=== PATIENT | female | born 1950 | race Caucasian/White ===

== ENCOUNTER 2019-12-15 11:48 | Outpatient (CLI) | payer MEDICARE, SELFPAY ==
[2019-12-15 13:17] LABS: Basophils Percent Auto 0.5 % (0.2-1.2); Eosinophils Absolute Auto 0.3 K/mm3 (0-0.3); Eosinophils Percent Auto 4.1 % (0-4.4); Hematocrit 39.5 % (37.0-47.0); Hemoglobin 12.9 g/dL (12.0-15.0); Immature Granulocyte Absolute 0.01 K/mm3 (0.00-0.031); Immature Granulocyte Percent A 0.2 % (0-0.5); Lymphocytes Absolute Auto 1.97 K/mm3 (0.9-3.2); Lymphocytes Percent Auto 31.4 % (18.3-44.2); Mean Corpuscular HGB Conc 32.7 g/dl (32-36); Mean Corpuscular Hemoglobin 29.8 pg (26-34); Mean Corpuscular Volume 91.2 fl (80-100); Mean Platelet Volume 11.4 fl (7.4-10.4); Monocytes Absolute Auto 0.5 K/mm3 (0.1-0.6); Monocytes Percent Auto 8.6 % (2.6-8.5); Neutrophils Absolute Auto 3.5 K/mm3 (1.3-6.7); Neutrophils Percent Auto 55.2 % (45.5-73.1); Platelet Count Result 245 k/mm3 (150-375); Red Blood Count 4.33 M/mm3 (4.2-5.4); Red Cell Distribution Width 12.5 % (11.5-14.5); White Blood Count 6.3 K/mm3 (4.5-10.0)
[2019-12-15 13:26] LABS: Albumin Level 4.2 g/dL (3.5-5.1)
[2019-12-15 13:33] LABS: Urine Cotinine NEGATIVE
[2019-12-15 13:35] LABS: Blood Urea Nitrogen 14 mg/dL (7-17); Calcium 9.1 mg/dL (8.4-10.2); Carbon Dioxide 32 mmol/L (22-30); Chloride 96 mmol/L (98-107); Estimated Glomerular Filt Rate > 60; Glucose 103 mg/dL (65-105); Potassium 3.7 mmol/L (3.4-5.0); Sodium 139 mmol/L (137-145)
[2019-12-15 13:43] LABS: Hemoglobin A1C 6.4 % (<5.7)
== END 2019-12-15 11:49 | disposition home or self-care (01) ==
PROVIDERS: Anesthesiology; PCP Family Medicine Sports Medicine; Visit Provider Orthopaedic Surgery
DX: Z01.818 Encounter for other preprocedural examination (principal); M17.12 Unilateral primary osteoarthritis, left knee; I10 Essential (primary) hypertension; E78.5 Hyperlipidemia, unspecified; R73.9 Hyperglycemia, unspecified
CPT/HCPCS: 36415; 80048; 80307; 82040; 83036; 85025; 86850; 86900; 86901

== ENCOUNTER 2019-12-28 14:59 | Observation (INO) | payer MEDICARE, SELFPAY ==
[2019-12-15 12:25] VITALS: BMI 36.6
[2019-12-15 13:02] VITALS: BP 161/79; PULSE 71; RESP 18; TEMP 36.7; O2SAT 98
--- NOTE | 2019-12-25 13:05 | P.HP_ITS ---
H&P: HPI History of Present Illness Chief complaint: OA Left Knee Narrative: Julia Major is a 69 year old female who has a chronic ongoing history of left knee pain due to primary osteoarthritis. Patient has pain with ambulation she has start-up pain rest pain and night pain. Patient can stand or walk for long periods has trouble with twisting or turning of the knee has aching pain almost any activity. Despite a course of conservative measures including cortisone therapy and anti-inflammatories or symptoms continue. X- rays at this time show advanced primarily arthritis left knee joint. The patient's discuss further treatment options in detail with Dr. Edgar in the patient would now like to proceed with a left total knee arthroplasty. Drug allergies no known drug allergies the patient does have a lactose intolerance. Social history is negative for tobacco use the patient occasionally drinks alcohol 10 point review of systems otherwise negative Past surgical history includes hysterectomy left knee arthroscopy and tonsillectomy. Meds Home Medications and Allergies Home Medications Medication Instructions Recorded Confirmed Type Lacto.acidophilus-Bif.animalis 1 cap PO DAILY 12/15/19 12/15/19 History [Daily Probiotic] amlodipine 5 mg PO DAILY 12/15/19 12/15/19 History atorvastatin 20 mg PO DAILY 12/15/19 12/15/19 History calcium carbonate [Calcium 600] 600 mg PO DAILY 12/15/19 12/15/19 History cholecalciferol (vitamin D3) 2,000 unit PO DAILY 12/15/19 12/15/19 History furosemide 20 mg PO QMWF 12/15/19 12/15/19 History hydrochlorothiazide 25 mg PO DAILY 12/15/19 12/15/19 History zegpmwcc-ryn-KD-lycopen-lutein 1 tablet PO DAILY 12/15/19 12/15/19 History [Centrum Silver] nebivolol [Bystolic] 20 mg PO DAILY 12/15/19 12/15/19 History pantoprazole 40 mg PO BID 12/15/19 12/15/19 History Allergies Allergy/AdvReac Type Severity Reaction Status Date / Time lactose Allergy Unknown BLOATING,ABD Verified 12/15/19 12:04 CRAMPING RED WINE Allergy Unknown CHEST PAIN Uncoded 12/15/19 12:03 Exam Narrative: Exam Narrative: HEENT exam within normal limits heart regular rate and rhythm lungs clear auscultation abdomen benign bowel sounds positive for quads. Extremities showed the patient's left knee to be painful with manipulation range of motion. She has subpatellar crepitation and pain with extremes of motion. His tenderness on the joint lines of mild effusion and swelling. Hips move well as negative Stinchfield negative EVAN. Neurovascular the patient is intact. Skin is intact. Central nervous system exam within normal limits. X-ray showed advanced primary arthritis left knee joint. Assessment and Plan Additional Plan The patient has advanced primarily with right is left knee joint. Patient's discussed risks benefits limitations and alternatives of surgery in great detail Dr. Edgar she has never proceed with left total knee arthroplasty. Patient is scheduled undergo surgery December 27, [address] [facility] Dr. Edgar.
[2019-12-27] VITALS (10 sets, daily range): BP systolic 118–151; BP diastolic 65–88; PULSE 79–89; RESP 11–18; TEMP 36.2–36.7; O2SAT 93–100; BMI 35.8
--- NOTE | 2019-12-27 07:14 | WPDHPUPDATE1 ---
History and Physical Update Update Date/Time: 12/27/19 07:14 History and Physical has been reviewed, including an updated exam of the patient. There are NO changes in the patient's condition. Risks, benefits, and alternatives have been discussed and questions answered. Patient agrees to proceed with procedure.
[2019-12-27] MEDS: LACTATED RINGERS 1,000 ML 30 ML IV CONT ×2 (08:50→11:32)
--- NOTE | 2019-12-27 09:15 | P.PNAN_ITS ---
Anes - Initial Pre Proc Eval Procedure: Operation Date: 12/27/19 10:00 Proposed Procedures p Left Total Knee Arthroplasty - Damián Edgar MD Date/Time: 12/27/19 09:15 Surgeon: Damián Edgar MD Pre Op Diagnosis: OA Left Knee Patient Data Age: 69 Gender: F Height: 5 ft 4 in Weight: 94.6 kg Last Vital Signs Temp 36.7 C 12/15/19 13:02 Pulse 71 12/15/19 13:02 Resp 18 12/15/19 13:02 BP 161/79 H 12/15/19 13:02 Pulse Ox 98 12/15/19 13:02 Allergies Allergy/AdvReac Type Severity Reaction Status Date / Time lactose Allergy Unknown BLOATING,ABD Verified 12/27/19 09:00 CRAMPING RED WINE Allergy Unknown CHEST PAIN Uncoded 12/27/19 09:00 Home Medications Medication Instructions Recorded Confirmed Type Lacto.acidophilus-Bif.animalis 1 cap PO DAILY 12/15/19 12/27/19 History [Daily Probiotic] amlodipine 5 mg PO DAILY 12/15/19 12/27/19 History atorvastatin 20 mg PO DAILY 12/15/19 12/27/19 History calcium carbonate [Calcium 600] 600 mg PO DAILY 12/15/19 12/27/19 History cholecalciferol (vitamin D3) 2,000 unit PO DAILY 12/15/19 12/27/19 History furosemide 20 mg PO QMWF 12/15/19 12/27/19 History hydrochlorothiazide 25 mg PO DAILY 12/15/19 12/27/19 History volrevsi-cpp-RC-lycopen-lutein 1 tablet PO DAILY 12/15/19 12/27/19 History [Centrum Silver] nebivolol [Bystolic] 20 mg PO DAILY 12/15/19 12/27/19 History pantoprazole 40 mg PO BID 12/15/19 12/27/19 History Patient hx anesthesia problems: none Family hx anesthesia problems: none [facility] Past Medical History Medical History (Updated 12/27/19 @ 09:16 by Merlin Bloom MD) HTN (hypertension) Hyperlipidemia Obesity Anes - Eval Final PreProcedure Day of Procedure 12/27/19 09:15 Patient weight: obese Heart: regular rate and rhythm Lungs: clear to auscultation Airway: Mallampati scale class 1 Neurological: alert and oriented Last oral intake: >/= 8 hours ASA classification: II Emergent: no Anesthetic plan: proceed Anesthesia type and monitoring: general GIVS and standard monitoring Informed Consent: The patient's anesthetic plan and its attendant risks and benefits were discussed with the patient/family/POA. Questions were solicited and answers provided to the satisfaction of the patient/family/POA.
--- NOTE | 2019-12-27 09:39 | WPDANESPNB ---
Anes - Peripheral Nerve Block Date/Time: 12/27/19 09:39 I have discussed with the patient/family/POA the placement of a peripheral nerve block for post-operative pain management, including associated risks, benefits, complications, and side effects. Alternative methods of post-operative analgesia were detailed. Questions were solicited and answers provided to the satisfaction of the patient/family/POA. Time-Out: A pre-procedural Time-Out was completed immediately before starting the procedure and confirmed: Patient Identification, Site, Procedure, Patient Position and the Availability of Requisite Equipment. Clinical Indications: Acute post-operative pain management requested by the operative surgeon. Nerve Block Insertion Note Anes-nerve block: femoral left Patient position: supine Skin prep: chlorhexidine Needle: 22 gauge, stimulating, insulated echogenic needle. Needle length: 50 mm Technique: nerve stimulation lost at (mA) (0.20) Injectate: bupivacaine 0.5% with epi 5 mcg/ml (30cc) and dexamethasone (mg) (8mg) Observations: tolerated well Complications: none Procedure start time:: 924 Procedure end time:: 932
[2019-12-27] MEDS: ceFAZolin 2 GM/D5W 50 ML 2 GM/50 ML BAG IVPB (09:53)
[2019-12-27] MEDS: GENTAMICIN BONE CEMENT REFOBACIN 1 EACH TOPICAL (10:14)
--- NOTE | 2019-12-27 11:05 | PM.PROC ---
Procedure Note - Detailed Date of procedure: 12/27/19 Pre-op diagnosis: OA Left Knee Post-op diagnosis: same Procedure performed: [Left] total knee arthroplasty Description of procedure: The patient was brought to the operating room. General anesthetic was administered. Placed on the operating table and sterilely prepped and draped in usual manner. A longitudinal incision was made. Tourniquet inflated to 300 mmHg for a total of [time] minutes. Dissection carried down to the fascia. Medial parapatellar incision was made and the patella subluxated laterally. Patella cut from [21] to [14] mm and sized for a [34] mm button. The tibia cut perpendicular to the long axis and femur cut in 7 degrees of valgus, a [60] femur trialed. [63] tibia was felt to fit the best. The soft tissue balanced, hemostasis obtained. All [address], [63] tibia, [60] femur, [34] mm patella, and [10] mm poly. Motion was 0-125 degrees with good stablility and flexion and extension. The wound was closed with #2 vicryl, 2-0 Vicryl and faith. Anesthesia: GETA Surgeon: Damián Edgar MD Director Talent Acquisition: Keith Mendenhall Estimated blood loss (mL): 200 Drains: No Packing: No Pathology: none sent Complications: No immediate complications Condition: stable Disposition: PACU Findings: arthritis
--- NOTE | 2019-12-27 12:43 | PC.NURSE ---
This patient, Julia Major, was admitted to 3 [facility] Room 319-01. Patient/family oriented to hospital policies and general routines including ID bracelet, bed and alarms, visiting hours, pain management, procedures, bathroom and other care routines, personal items, smoking policy, room service/diet, and visiting hours. Valuables list has been completed. Information on how to activate the Rapid Response Team has been discussed. Patient/Family are encouraged to report perceived risks to care and to ask questions if they do not understand what they are told or what they should do.
[2019-12-27] MEDS: SODIUM CHLORIDE 0.9% IV 1,000 ML 125 ML IV CONT ×2 (13:09→20:57)
[2019-12-27 13:53] LABS: Estimated CRCL calculation 71 ml/min; Estimated Glomerular Filt Rate > 60
[2019-12-27] MEDS: MORPHINE SULFATE 4 MG/ML INJ IV PUSH (13:59)
[2019-12-27] MEDS: CELECOXIB 200 MG CAPSULE PO (17:36)
[2019-12-27] MEDS: PANTOPRAZOLE 40 MG TABLET PO (17:37)
[2019-12-27] MEDS: FAMOTIDINE 20 MG TABLET PO (20:56)
[2019-12-27] MEDS: RIVAROXABAN 10 MG TABLET PO (20:56)
[2019-12-27] MEDS: DOCUSATE SODIUM 100 MG CAPSULE PO (20:56)
[2019-12-27] MEDS: TRAMADOL HCL 50 MG TABLET PO (20:57)
--- NOTE | ~2019-12-28 | XR_ITS ---
EXAMINATION: XR knee LT 2V DATE: 12/27/2019 11:55 INDICATION: Postoperative evaluation following left total knee arthroplasty. TECHNIQUE: Anteroposterior and lateral views of the left knee were obtained. COMPARISON: None. FINDINGS: Left total knee arthroplasty with patellar resurfacing appears well seated and in near anatomic align ment. No fractures identified. Skin faith and expected postoperative subcutaneous, intramedullary and intra-articular gas. IMPRESSION: 1. Left total knee arthroplasty, negative for postoperative purposes. Reviewed, dictated and finalized at location A. [employer]
[2019-12-28 02:00] VITALS: BP 154/78; PULSE 95; RESP 16; TEMP 36.3; O2SAT 97
[2019-12-28 02:11] VITALS: PULSE 87; RESP 16; O2SAT 98
[2019-12-28 04:20] VITALS: PULSE 87; RESP 16; O2SAT 97
[2019-12-28 06:00] VITALS: BP 139/69; PULSE 86; RESP 16; TEMP 36.8; O2SAT 97
[2019-12-28 06:42] LABS: Basophils Percent Auto 0.1 % (0.2-1.2); Hematocrit 32.1 % (37.0-47.0); Hemoglobin 10.8 g/dL (12.0-15.0); Immature Granulocyte Absolute 0.06 K/mm3 (0.00-0.031); Immature Granulocyte Percent A 0.5 % (0-0.5); Lymphocytes Absolute Auto 0.92 K/mm3 (0.9-3.2); Lymphocytes Percent Auto 7.3 % (18.3-44.2); Mean Corpuscular HGB Conc 33.6 g/dl (32-36); Mean Corpuscular Hemoglobin 30.1 pg (26-34); Mean Corpuscular Volume 89.4 fl (80-100); Mean Platelet Volume 11.3 fl (7.4-10.4); Monocytes Absolute Auto 1.1 K/mm3 (0.1-0.6); Monocytes Percent Auto 8.6 % (2.6-8.5); Neutrophils Absolute Auto 10.5 K/mm3 (1.3-6.7); Neutrophils Percent Auto 83.5 % (45.5-73.1); Platelet Count Result 221 k/mm3 (150-375); Red Blood Count 3.59 M/mm3 (4.2-5.4); Red Cell Distribution Width 12.5 % (11.5-14.5); White Blood Count 12.5 K/mm3 (4.5-10.0)
[2019-12-28 06:46] LABS: Blood Urea Nitrogen 14 mg/dL (7-17); Calcium 8.7 mg/dL (8.4-10.2); Carbon Dioxide 26 mmol/L (22-30); Chloride 101 mmol/L (98-107); Estimated CRCL calculation 96 ml/min; Estimated Glomerular Filt Rate > 60; Glucose 168 mg/dL (65-105); Potassium 3.8 mmol/L (3.4-5.0); Sodium 138 mmol/L (137-145)
[2019-12-28] MEDS: CELECOXIB 200 MG CAPSULE PO (07:54)
[2019-12-28] MEDS: DOCUSATE SODIUM 100 MG CAPSULE PO (07:55)
[2019-12-28] MEDS: FAMOTIDINE 20 MG TABLET PO (07:55)
[2019-12-28] MEDS: ATORVASTATIN 20 MG TABLET PO (07:55)
[2019-12-28] MEDS: AMLODIPINE BESYLATE 5 MG TABLET PO (07:55)
[2019-12-28] MEDS: hydroCHLOROthiazide 25 MG TABLET PO (07:55)
[2019-12-28 07:56] VITALS: PULSE 86
[2019-12-28] MEDS: MULTIVITAMINS /C LUTEIN (CENTRUM SILVER) TABLET *BKC 1 TAB PO (07:56)
[2019-12-28] MEDS: PANTOPRAZOLE 40 MG TABLET PO (07:56)
[2019-12-28] MEDS: NEBIVOLOL HCL 5 MG TABLET 20 MG PO (07:56)
--- NOTE | 2019-12-28 08:46 | P.PNAN_ITS ---
Anes - Prog Note Post-Op Date/Time: 12/28/19 08:46 Cardiovascular status: normal Respiratory status: normal Airway patency: baseline Mental status: baseline Post-Op hydration status: normal Vital Signs: Last Vital Signs Temp 36.8 C 12/28/19 06:00 Pulse 86 12/28/19 07:56 Resp 16 12/28/19 06:00 BP 139/69 12/28/19 06:00 Pulse Ox 97 12/28/19 06:00 I/O: Intake & Output 12/27/19 12/28/19 12/28/19 23:59 07:59 15:59 Intake Total 1490 1600 Output Total 400 900 Balance 1090 700 Laboratory Tests 12/28/19 06:08 12/28/19 06:08 12/27/19 12/28/19 12/28/19 13:29 06:08 06:08 WBC 12.5 H RBC 3.59 L Hgb 10.8 L Hct 32.1 L MCV 89.4 MCH 30.1 MCHC 33.6 RDW 12.5 Plt Count 221 MPV 11.3 H Immature Gran % (Auto) 0.5 Neut % (Auto) 83.5 H Lymph % (Auto) 7.3 L [place] % (Auto) 8.6 H Eos % (Auto) 0.0 Baso % (Auto) 0.1 L Lymph # (Auto) 0.92 [place] # (Auto) 1.1 H Eos # (Auto) 0.0 Baso # (Auto) 0.0 Abs Immat Gran (auto) 0.06 H Absolute Neuts (auto) 10.5 H Absolute Nucleated RBC 0.0 Nucleated RBC % 0.0 Sodium 138 Potassium 3.8 Chloride 101 Carbon Dioxide 26 BUN 14 Creatinine 0.70 0.50 L Estim Creat Clear Calc 71 96 Estimated GFR > 60 > 60 Glucose 168 H Calcium 8.7 Post-procedural complaints: none Patient Feedback: Patient satisfied with anesthetic care.
--- NOTE | 2019-12-28 09:03 | PM.IMCN ---
Assessment and Plan Assessment and plan (1) HTN (hypertension): Code(s): I10 - Essential (primary) hypertension Status: Acute (2) Hyperglycemia: Code(s): R73.9 - Hyperglycemia, unspecified Status: Acute (3) Osteoarthritis, knee: Code(s): M17.10 - Unilateral primary osteoarthritis, unspecified knee Status: Acute (4) Hyperlipidemia: Code(s): E78.5 - Hyperlipidemia, unspecified Status: Acute (5) Acute blood loss anemia: Code(s): D62 - Acute posthemorrhagic anemia Status: Acute Additional Plan Patient had some mild nausea vomiting post procedure but this has resolved. Pain is well controlled. She is up ambulating multiple times to the bathroom ready. She appears overall to have recovered well from the surgery. Blood pressure well controlled. Antihypertensive medications have been resumed. Monitor for hypotension. Mild postoperative anemia noted. White count slightly elevated probably related to stress response. Glucose also elevated to 168 this morning. Patient appears to be borderline diabetes with A1c recently of 6.4. Discussed healthy lifestyle choices. She is eager to start using her stationary bike again. PT and OT. Will continue his follow along with you. Thank you so much for allowing me part of this patient's care. HPI Data of Consult Consult date: 12/28/19 Requesting Physician: Michael Wells MD Primary Care Provider: Damián Edgar MD Consult Narrative Narrative: Julia Major is a 69 year old female with OA here for elective left TKA. Patient has had the pain bilaterally for over 5 years. The left is worse than the right. She has had injections the left knee. This has been of benefit. She has also been doing therapy. She noted that her left knee pain has worsened over the past year. She has been having trouble standing for prolonged periods. she has occasional pain at night. She did have a left knee meniscus repair done many years ago. Options were discussed and patient wished to proceed with surgical replacement. Patient admitted underwent left total knee arthroplasty on 12/27/2019. Post procedure, she did have some nausea and vomiting that has resolved. She is eating normally now. No other significant symptoms. She has been up walking to the bathroom multiple times already. No chest pain or shortness of breath. She states that her blood pressure and cholesterol well controlled prior to admission. Review of Systems Review of Systems: All systems reviewed & are unremarkable except as noted in HPI and below PMFSH Past Medical History Medical History (Updated 12/28/19 @ 09:18 by Ollie Wells MD) Emphysema lung Her patient. Related to 2nd hand smoke. Endometriosis GERD (gastroesophageal reflux disease) Glaucoma History of depression HTN (hypertension) Hyperlipidemia Obesity Osteoarthritis, knee Surgical History Surgical History (Updated 12/28/19 @ 09:11 by Ollie Wells MD) History of cataract surgery History of hysterectomy with oophorectomy History of medial meniscus repair of left knee History of tonsillectomy Age 13 Family History Family History (Updated 12/28/19 @ 09:12 by Ollie Wells MD) Father Lung cancer Mother Breast cancer Lung cancer Social History Social History (Updated 12/28/19 @ 09:13 by Ollie Wells MD) Social History: Lives home with her . They have 2 cats. No alcohol use. Lifelong nonsmoker but has been exposed to secondhand smoke. Full code. No drug use. Meds Home Medications and Allergies Home Medications Medication Instructions Recorded Confirmed Type Lacto.acidophilus-Bif.animalis 1 cap PO DAILY 12/15/19 12/27/19 History [Daily Probiotic] amlodipine 5 mg PO DAILY 12/15/19 12/27/19 History atorvastatin 20 mg PO DAILY 12/15/19 12/27/19 History calcium carbonate [Calcium 600] 600 mg PO DAILY 12/15/19 12/27/19 History cholec
--- NOTE | 2019-12-28 15:35 | PM.DS ---
DS: Diagnosis Admitting Diagnosis Admitting Diagnosis: Unilateral primary osteoarthritis, left knee DS: Summary Hospital Course Reason for hospitalization: Patient was hospitalized overnight status post total knee arthroplasty left knee. Patient has had no postoperative complications and pain was well controlled. She is now deemed stable for discharge home Status at Discharge Functional status at discharge: independent ambulation Time Spent with Patient Time attestation: Total time spent providing and/or coordinating discharge services: Time spent: Less than 30 minutes Exam Narrative: Exam Narrative: Vital signs stable afebrile and neurovascularly the patient is intact wound left knee is clean and dry postop day 1. Calves are benign. Skin is intact without rashes or lesions. Pain fairly well controlled and the patient is participating in physical therapy ambulating independently with a walker weight-bearing as tolerated left lower extremity. Patient is deemed stable for discharge postop day 1. DS: Data Data Completed and Pending Labs on day of discharge: Labs from last 24 hours 12/28/19 12/28/19 06:08 06:08 WBC 12.5 H RBC 3.59 L Hgb 10.8 L Hct 32.1 L MCV 89.4 MCH 30.1 MCHC 33.6 RDW 12.5 Plt Count 221 MPV 11.3 H Immature Gran % (Auto) 0.5 Neut % (Auto) 83.5 H Lymph % (Auto) 7.3 L [place] % (Auto) 8.6 H Eos % (Auto) 0.0 Baso % (Auto) 0.1 L Lymph # (Auto) 0.92 [place] # (Auto) 1.1 H Eos # (Auto) 0.0 Baso # (Auto) 0.0 Abs Immat Gran (auto) 0.06 H Absolute Neuts (auto) 10.5 H Absolute Nucleated RBC 0.0 Nucleated RBC % 0.0 Sodium 138 Potassium 3.8 Chloride 101 Carbon Dioxide 26 BUN 14 Creatinine 0.50 L Estim Creat Clear Calc 96 Estimated GFR > 60 Glucose 168 H Calcium 8.7 Discharge Plan Discharge Patient Disposition: Home, Self-Care Discharge Instructions: Patient is discharged home, general diet, activity as tolerated weight-bearing as tolerated left lower extremity with a walker. Patient is to be up in physical therapy for total knee protocol starting early next week and is instructed to do her exercises daily on her own at home. The patient is discharged with prescriptions for Xarelto, Flexeril and Newcomb on the chart, when Xarelto course is completed the patient is instructed to use aspirin 325 mg p.o. b.i.d. x1 month for DVT prophylaxis then discontinue. Patient will change dressing daily keep it clean and dry. Watch for evidence of drainage or infection call office immediately if there is any issues with the wound. Patient will follow up 2 weeks postop for staple removal and wound recheck, she is instructed to call the office immediately at [phone] for any problems difficulties or questions regarding her postoperative course. Stand Alone Forms: Avoid NSAIDs Follow-up/Referrals: Damián Edgar MD [Physician] - Discharge Medications: New cyclobenzaprine 10 mg Tablet 10 mg PO Q8H PRN (Reason: Spasms) Qty: 40 RF: 0 hydrocodone-acetaminophen 5-325 mg Tablet 1 tab PO Q4H PRN (Reason: Moderate Pain (4-6)) Qty: 50 RF: 0 Xarelto 10 mg Tablet 10 mg PO DAILY@17 Qty: 13 RF: 0 Continued atorvastatin 20 mg Tablet 20 mg PO DAILY RF: 0 amlodipine 5 mg Tablet 5 mg PO DAILY RF: 0 calcium carbonate [Calcium 600] 600 mg calcium (1,500 mg) Tablet 600 mg PO DAILY RF: 0 pantoprazole 40 mg Tablet,Delayed Release (Dr/Ec) 40 mg PO BID RF: 0 hydrochlorothiazide 25 mg Tablet 25 mg PO DAILY RF: 0 furosemide 20 mg Tablet 20 mg PO QMWF RF: 0 Centrum Silver 0.4-300-250 mg-mcg-mcg Tablet 1 tablet PO DAILY RF: 0 Bystolic 20 mg Tablet 20 mg PO DAILY RF: 0 Daily Probiotic 2.5 billion cell Capsule 1 cap PO DAILY RF: 0 cholecalciferol (vitamin D3) 2,000 unit Tablet,Chewable 2,000 unit PO DAILY RF: 0
== END 2019-12-28 16:10 | disposition home or self-care (01) ==
LOC: ANHSURGERY 18:54 → ANH3MEDSUR 18:54
PROVIDERS: Admitting Provider Orthopaedic Surgery; Visit Provider Orthopaedic Surgery
PROC: (CPT 27447; principal; 2019-12-27 10:00)
DX: M17.12 Unilateral primary osteoarthritis, left knee (principal); G89.18 Other acute postprocedural pain; D62 Acute posthemorrhagic anemia; R73.9 Hyperglycemia, unspecified; I10 Essential (primary) hypertension; E78.5 Hyperlipidemia, unspecified; E66.9 Obesity, unspecified; Z68.36 Body mass index [BMI] 36.0-36.9, adult; J43.9 Emphysema, unspecified; Z77.22 Contact with and (suspected) exposure to environmental tobacco smoke (acute) (chronic); Z79.899 Other long term (current) drug therapy
CPT/HCPCS: 27447; 64447; 36415; 73560; 80048; 80307; 82040; 82565; 83036; 85025; 86850; 86900; 86901; 97110; 97116; 97161; 97165; 97530; A9270; C1713; C1776; G0378; J0171; J0690; J1100; J1885; J2250; J2270; J2370; J2405; J2704; J2795; J3010; J3370; J7030; J7120

== ENCOUNTER 2020-01-09 15:00 | Outpatient (CLI) | payer MEDICARE, SELFPAY ==
--- NOTE | ~2020-01-09 | US_ITS ---
EXAMINATION: US venous doppler [facility] EXAM DATE: 01/09/2020 15:31 INDICATION: Left knee surgery. TECHNIQUE: Multiple grayscale, color flow and Doppler images of the left lower extremity deep venous system obtained and reviewed. There is no prior study for comparison. FINDINGS: LEFT SIDE Common femoral: -------- Normal. Profunda femoral: ------- Normal. Femoral: Normal. Popliteal: Normal. Posterior tibial: --------- Normal. Peroneal: Thrombosed. Gastrocnemius: Not visualized. Soleus: Not visualized. Greater saphenous: ----- Normal. Lesser saphenous: ------ Not visualized. IMPRESSION: 1. Positive for left peroneal DVT. STAT hold and call. I confirmed with Gabi that patient is in waiting room, and who is notifying or dering doctor of results. Patient will be given instructions at that time. Reviewed, dictated and finalized at location A. [employer] IMPRESSION: 1. Positive for left peroneal DVT. STAT hold and call. I confirmed with Gabi that patient is in waiting room, a nd who is notifying ordering doctor of results. Patient will be given instructi ons at that time.
== END 2020-01-09 15:01 | disposition home or self-care (01) ==
PROVIDERS: Visit Provider Physician Assistant Surgical
DX: M17.12 Unilateral primary osteoarthritis, left knee (principal); I82.452 Acute embolism and thrombosis of left peroneal vein
CPT/HCPCS: 93971

== ENCOUNTER 2021-02-04 14:43 | Outpatient (CLI) | payer MEDICARE, SELFPAY ==
--- NOTE | ~2021-02-04 | US_ITS ---
EXAMINATION:US venous doppler LE LT INDICATION:Calf swelling TECHNIQUE: Multiple grayscale, color flow and Doppler images of the left lower extremity deep venous systems were obtained and reviewed. COMPARISON:01/09/2020 FINDINGS: The common femoral, superficial femoral and popliteal veins demonstrate normal respiratory variation, augmentation and compressibility. Color flow is also seen within the posterior tibial, pe roneal, greater saphenous and profunda veins. IMPRESSION: 1: No lower extremity deep venous thrombosis. Reviewed, dictated and finalized at location B.
== END 2021-02-04 14:44 | disposition home or self-care (01) ==
PROVIDERS: PCP Orthopaedic Surgery; Visit Provider Orthopaedic Surgery
DX: I82.409 Acute embolism and thrombosis of unspecified deep veins of unspecified lower extremity (principal); M79.89 Other specified soft tissue disorders
CPT/HCPCS: 93971

== ENCOUNTER 2024-06-06 14:20 | Outpatient (CLI) | payer MEDICARE, SELFPAY ==
--- NOTE | ~2024-06-06 | US_ITS ---
EXAMINATION: US carotid duplex BI DATE: 06/06/2024 15:13 INDICATION: Dizziness and giddiness. Cerebral atherosclerosis. TECHNIQUE: Grayscale, color Doppler, and pulsed Doppler images of the cervical carotid arteries were obtained. The degree of vessel stenosis is placed in one of the following categories: normal, <50%, 5 0-69%, >=70% but less than near-occlusion, near-occlusion, or total occlusion. Note that percent sten osis relative to normal distal artery lumen diameter is indirectly measured from velocity measurement s as described by Cesar, et al. Radiology 2003; 229:340-346. COMPARISON: None. FINDINGS: RIGHT: The right common carotid artery (CCA) peak systolic velocity (PSV) is 64 cm/s. The right internal car otid artery (ICA) PSV is 143 cm/s. The right ICA end-diastolic velocity (EDV) is 33 cm/s. The right I CA/CCA PSV ratio is 2.2. Grayscale and color Doppler images including secondary Doppler criteria yiel d an estimate of <50% diameter reduction from minimal plaque in the ICA. The external carotid artery (ECA) PSV is 82 cm/s. There is antegrade flow in the right vertebral artery. LEFT: The left CCA PSV is 67 cm/s. The left ICA PSV is 111 cm/s. The left ICA EDV is 35 cm/s. The left ICA/ CCA PSV ratio is 1.7. Grayscale and color Doppler images yield an estimate of <50% diameter reduction from plaque in the ICA. The ECA PSV is 86 cm/s. There is antegrade flow in the left vertebral artery . IMPRESSION: 1. <50% stenosis in the right internal carotid artery. 2. <50% stenosis in the left internal carotid artery. Reviewed, dictated and finalized at location A.
--- NOTE | ~2024-06-06 | CT_ITS ---
EXAMINATION: CT brain wo con DATE: 06/06/2024 14:44 INDICATION: Dizziness and giddiness. TECHNIQUE: Computed tomography (CT) of the head was performed without intravenous contrast. The mA wa s adjusted according to patient size. Iterative reconstruction technique was employed. The dose-lengt h product was 605.33 mGy-cm. COMPARISON: None FINDINGS: There are scattered areas of low attenuation in the cerebral white matter, which is within normal limits for the patient's age. There is no intracranial hemorrhage, acute infarction, or abnorm al intracranial mass lesion. The ventricles are normal in size. There is mild mucosal thickening in t he paranasal sinuses. The mastoid air cells are normal. There are likely changes of ocular lens repla cement surgeries. IMPRESSION: 1. Normal aging brain. Reviewed, dictated and finalized at location A. IMPRESSION: 1. Normal aging brain.
== END 2024-06-06 14:21 | disposition home or self-care (01) ==
PROVIDERS: PCP Internal Medicine; Visit Provider Nurse Practitioner Family
DX: R42 Dizziness and giddiness (principal); R26.89 Other abnormalities of gait and mobility; I10 Essential (primary) hypertension; I65.23 Occlusion and stenosis of bilateral carotid arteries
CPT/HCPCS: 70450; 93880

== ENCOUNTER 2025-07-10 08:39 | Outpatient (CLI) | payer MEDICARE, SELFPAY ==
--- NOTE | ~2025-07-10 | DEXA_ITS ---
Bone Density Report Name: MOSHE THORNTON Age: 74 Sex: Female Ethnicity: White Date of : 1950 Indication: postmenopausal; screening for osteoporosis; hysterectomy; Referring Provider: VALORIE MACIAS Study: Bone densitometry was performed. Exam Date: July 10, 2025 Accession number: [id number] Bone Density: Region BMD T-score Z-score Classification AP Spine(L1-L4) 0.856 -1.7 0.8 Osteopenia Femoral Neck (Left) 0.641 -1.9 0.3 Osteopenia Total Hip (Left) 0.792 -1.2 0.7 Osteopenia Femoral Neck (Right) 0.659 -1.7 0.5 Osteopenia Total Hip (Right) 0.783 -1.3 0.6 Osteopenia Total Hip Mean 0.787 -1.3 0.7 Osteopenia World Health Organization criteria for BMD impression classify patients as: Normal (T-score at or above -1.0), Osteopenia (T-score between -1.0 and -2.5), or Osteoporosis (T-score at or below -2.5). 10-year Fracture Risk(1): Major Osteoporotic Fracture 13% Hip Fracture 3.0% Reported Risk Factors: [place] (), Neck BMD=0.641, BMI=33.0 (1) FRAX(R) Version 3.08. Fracture probability calculated for an untreated patient. Fracture probability may be lower if the patient has received treatment. Clinical Information Provided by Patient: Has used the following medications: Vitamin D, Calcium Has the following medical conditions: Hysterectomy Patient maximum height was 64 Menopause Age: 47 No regular weight bearing exercise Does not regularly consume dairy products Onset of menses at age 10 Number of children 4 Impression: The patient has low bone mass, based on the Left Femoral Neck T-score. The patient has an estimated ten-year risk of hip fracture of 3% and an estimated ten-year risk of major fracture of 13%, based on the WHO FRAX algorithm. Discussion: BONE DENSITY IS LOW AT ONE OR MORE SKELETAL SITES. THE PATIENT'S BMD AND CLINICAL RISK FACTORS CONTRIBUTE TO THIS PATIENT'S INCREASED RISK OF FRACTURE. This patient's lowest T-score is low at one or more skeletal sites. It meets the World Health Organization's (WHO) criteria for ?low bone mass? (T-score between -1.0 and -2.5). The patient's 10-year risk of hip fracture as calculated by FRAX exceeds the threshold where pharmacological therapy is recommended by the National Osteoporosis Foundation (NOF). However, all treatment decisions require clinical judgment and consideration of individual patient factors, including patient preferences, comorbidities, previous drug use, risk factors not captured in the FRAX model (e.g., frailty, falls, vitamin D deficiency, increased bone turnover, interval significant decline in bone density) and possible under or overestimation of fracture risk by FRAX. The patient should follow a healthful lifestyle (good nutrition with adequate calcium and vitamin D, and appropriate weight-bearing exercise). Follow-Up: Consider a repeat BMD and Vertebral Fracture Assessment (VFA) exam in 2 years or sooner if medically necessary, to reassess this patient's status. Reported by: MIAN on 07/10/2025 2:02:00 PM. Reviewed, dictated and finalized at location A.
--- OUTSIDE RECORDS SUMMARY | 2025-07-10 08:44 | XMS_ITS | Clinical Summary ---
Author Organization [facility] Address [address], [address] [place] [address] Phone Care Team Providers Care Truck Engine Assembler Name Role Phone Bridger Oneal MD Primary Care Provider Robert Stafford DO Unavailable [phone] Allergies No known active allergies Medications polyethylene glycol (MIRALAX) Powder Use entire 255g bottle with 64oz of clear liquid as directed for colonoscopy prep. 255 g 7 Active metoprolol Succinate (TOPROL-XL) 50 MG TABLET SR 24 HR TK 1 T PO QD HS 0 7 Active furosemide (LASIX) 20 MG Tablet Take 20 mg by mouth daily. Active DULoxetine (CYMBALTA) [address] Particles Take 60 mg by mouth daily. Active amLODIPine (NORVASC) 5 MG Tablet Take 5 mg by mouth daily. Active Potassium Chloride ER (KLORCON) 20 MEQ Tablet Controlled Release TK 1 T PO D 2 7 Active pantoprazole (PROTONIX) 40 MG Tablet Delayed Response Take 40 mg by mouth daily. Active latanoprost (XALATAN) 0.005 % Solution Place 1 Drop in affected eye(s) nightly. Active Multiple Vitamins-Minera ls (CENTRUM SILVER PO) Take by mouth. Acti ve Family History Medical History Relation Name Comments Heart Disease Father Breast Cancer Mother Lung Cancer Mother Relation Name Status Comments Father Mother Social History Tobacco Use Types Packs/Day Years Used Date Smoking Tobacco: Never Smokeless Tobacco: Never Alcohol Use Standard Drinks/Week Comments No 0 (1 standard drink = 0.6 oz pur e alcohol) Comments Unknown Sex and Gender Information Value Date Recorded Sex Assigned at Not on file Legal Sex Female 1:47 PM CDT Gender Identity Not on file Sexual Orientation Not on file Plan of Treatment Health Maintenance Due Date Last Done Comments DEXA Bone Density 1950 Hepatitis C Virus (HCV) Screening 1950 TdaP Immunization 1950 Pneumococcal Immunization (5 0+ years) (1 of 1 - PCV) 1998 Zoster Immunization (1 of 2) 1998 Respiratory Syncytial Virus (RSV) Immunization (Adult) (1 - 1-dose 75+ series) 2023 SARS-COV-2 Immunization ( - season) 2024 Influenza Immunization (#1) 2025 Colonoscopy Discontinued 11/18/2017 Colorectal Cancer Screening Discontinued Cologuard Discontinued Hepatitis B Immunization Aged Out No longer eligible based on patient's age to complete this topic Human Papillomavirus (HPV) Immunization Aged Out No longer eligible b ased on patient's age to complete this topic Immunochemical Fecal Occult Blood Discontinued Meningococcal Immunization (ACWY) Aged Out No longer eligible based on patient's age to complete this topic Rotavirus Immunization Aged Out No lo nger eligible based on patient's age to complete this topic Procedures Procedure Name Priority Date/Time Associated Diagnosis Comments COLONOSCOPY Routine 11/18/2017 from Last 3 Months or Most Recently Relevant to Health Maintenance Results * COLONOSCOPY (11/18/2017) Robert Stafford DO PROCEDURE/MINOR SURGICAL ORDERA BLES Final Result from Last 3 Months or Most Recently Relevant to Health Maintenance Insurance MEDICARE [facility] Care Teams Truck Engine Assembler Relationship Specialty Start Date End Date Bridger Oneal MD [address] [place] [id number] PCP - General Internal Medicine 11/19/17 Robert Stafford DO [address] [place] [address] Gastroenterology 11/19/17
== END 2025-07-10 08:40 | disposition home or self-care (01) ==
PROVIDERS: PCP Nurse Practitioner Family; Visit Provider Nurse Practitioner Family
DX: M85.89 Other specified disorders of bone density and structure, multiple sites (principal); N95.8 Other specified menopausal and perimenopausal disorders
CPT/HCPCS: 77080

== ENCOUNTER 2025-10-15 00:47 | Day surgery (SDC) | payer MEDICARE, SELFPAY ==
[2025-09-20 15:55] VITALS: BMI 30.9
--- OUTSIDE RECORDS SUMMARY | 2025-10-15 00:50 | XMS_ITS | Clinical Summary ---
Author Organization [facility] Address [address], [facility] [address] [place] [address] Phone Care Team Providers Care Cement Conveyor Operator Name Role Phone Bridger Oneal MD Primary Care Provider Robert Stafford DO Unavailable [phone] Allergies No known active allergies Medications [...] 1998 Zoster Immunization (1 of 2) 1998 Medicare Initial AWV [id number] 07/09/2014 Respiratory Syncytial Virus (RSV) Immunization (Adult) (1 - 1-dose 75+ series) 2023 Influenza Immunization (#1) 2025 SARS-COV-2 Immunization ( - season) 2025 Colonoscopy Discontinued 11/18/2017 Colorectal Cancer Screening [...] Recently Relevant to Health Maintenance Insurance [facility] Care Teams Cement Conveyor Operator Relationship Specialty Start Date End Date Bridger Oneal MD [address] [place] [address] PCP - General Internal Medicine 11/19/17 Robert Stafford DO [address] [place] [address] Gastroenterology 11/19/17
--- OUTSIDE RECORDS SUMMARY | 2025-10-15 00:50 | XMS_ITS | Encounter Summary ---
Author Organization [facility] Address [address] [place] [address] Care Team Providers Care Radio Electronics Officer Name Role Phone Blaise Kwon MD Unavailable [phone] Jane Motley Primary Care Provider [phone] Encounter Details Date Type Department Care Team (Late st Contact Info) Description 07/20/2025 Abstract [facility] [address] Lavern Fam MA Social History Tobacco Use Types Packs/Day Years Used Date Smoking Tobacco: Never Smokeless Tobacco: Never Comments:non smoker Alcohol Use Standard Drinks/Week Comments No 0 (1 standard drink = 0.6 oz pur e alcohol) AUDIT-C Answer Date Recorded Q1: How often do you have a drink containing alc ohol? Monthly or less 12/07/2023 Q2: How many drinks containi ng alcohol do you have on a typical day when you are drinking? 1 or 2 12/07/2023 Q3: How often do you have si x or more drinks on one occasion? Never 12/07/2023 PHQ-2 Answer Date Recorded Patient Health Questionnaire-2 Score 1 12/07/2023 Education Answer Date Recorded What is the highest level of school you have completed or the highest degree you have received? High school graduate 03/30/2019 Comments No Sex and Gender Information Value Date Recorded Sex Assigned at Female 03/30/2019 3:41 PM CDT Legal Sex Female 3:51 PM CDT Gender Identity Female 03/30/2019 3:41 PM CDT Sexual Orientation Straight 03/30/2019 3: 41 PM CDT Occupation Industry Job Start Date Job End Date Not on file Not on file Not on file Not on file documented as of this encounter Plan of Treatment Upcoming Encounters Date Type Department Care Team (Late st Contact Info) Description 08/12/2026 10:30 AM CDT Office Visit [facility] [address] [place] [address] Rj Castanon MD Three [facility] [address] [place] [address] documented as of this encounter Procedures Procedure Name Priority Date/Time Associated Diagnosis Comments LIPID PANEL Routine 05/18/2025 documented in this encounter Results * LIPID PANEL (05/18/2025) CHOLESTEROL 148 TRIGLYCERIDES 156 HDL 64 LDL (CALCULATED) 61 NON HDL CHOLESTEROL 84 us Default History Genericprovider LABORATORY Edited Result - Final documented in this encounter Visit Diagnoses Not on filedocumented in this encounter Additional Health Concerns Assessment Noted Time PHQ-9 Depression Total Score: 8 12/07/19 24 1:25 PM SCIENTIFIC DATABASE CURATOR documented as of this encounter Care Teams Radio Electronics Officer Relationship Specialty Start Date End Date Jane Motley FNP [address] [place] [address] PCP - General Nurse Practitioner Family 10/04/24 Blaise Kwon MD [address] [place] [id number] Referring Physician OPHTHALMOLOGY 10/04/24 documented as of this encounter
--- OUTSIDE RECORDS SUMMARY | 2025-10-15 00:50 | XMS_ITS | Clinical Summary ---
Author Organization [facility] Address [address] [place] [address] Care Team Providers Care Configuration Management Specialist Name Role Phone Blaise Kwon MD Unavailable [phone] Jane Motley Primary Care Provider Allergies No known active allergies Medications MULTIPLE MINERALS-VITAMIN S OR Take 1 tablet by mouth daily. Active acetaminophen (TYLENOL) 500 MG tablet Take 1 tablet (500 mg total) by mouth every 4 (four) hours as needed for Pain. Active Calcium Carbonate (CALCIUM 600 OR) Take 1 tablet by mouth daily. Active furosemide (LASIX) 20 MG tabletIndication s:Essential hypertension TAKE 1 TABLET BY MOUTH 3 TIMES A WEEK ON WED-WED-WED AT 9AM (VIAL) 43 tablet 4 Active albuterol sulfate HFA 108 (90 Base) MCG/ACT inhalerIndicatio ns:Upper respiratory tract infection, unspecified type INHALE TWO PUFFS BY MOUTH EVERY 6 HOURS NEEDED FOR WHEEZING (bulk) 34 g 1 4 Active nebivolol (BYSTOLIC) 20 MG tabletIndication s:Essential hypertension TAKE 1 TABLET BY MOUTH DAILY AT 9 AM 100 tablet 2 4 Active Additional Information Patient taking differently: TAKE 1 TABLET BY MOUTH DAILY AT 9 AM, Reported on 08/06/2025 hydroCHLOROthiaz daisy (HYDRODIURIL) 25 MG tabletIndication s:Essential hypertension TAKE 1 TABLET BY MOUTH DAILY AT 9 AM IN THE MORNING 100 tablet 4 Active pantoprazole EC (PROTONIX) 40 MG tabletIndication s:GERD (gastroesophagea l reflux disease) TAKE 1 TABLET BY MOUTH TWICE DAILY AT 9 AM AND 5 PM 200 tablet 4 Active melatonin 1 MG tablet Take 1 tablet (1 mg total) by mouth nightly as needed. Active fluticasone propionate (FLONASE) 50 MCG/ACT nasal spray 1 spray by Nasal route daily. Active losartan (COZAAR) 25 MG tablet Take 1 tablet (25 mg total) by mouth daily. 4 Active rosuvastatin (CRESTOR) 5 MG tablet Take 1 tablet (5 mg total) by mouth nightly at bedtime. 5 Active amLODIPine (NORVASC) 5 MG tabletIndication s:Essential hypertension Take 1 tablet (5 mg total) by mouth daily. 5 Active Active Problems Problem Noted Date Diagnosed Date History of total right knee replacement 02/17/20 22 Knee pain 01/07/2021 Osteoarthritis of right knee 10/19/2019 Glaucoma of both eyes, unspecified glaucoma type 11/24/2018 Essential hypertension 11/24/2018 Encounters Date Type Department Care Team Description 08/06/2025 2:15 PM CDT [facility] [address] [place] [address] Rj Castanon MD Baugher, Dana A, NNAMDI Hypertension; Lipids 08/06/2025 Travel 07/20/2025 Results Follow-Up [facility] [address] [address] Sabina Fried RN LIPID PANEL 07/20/2025 Abstract [facility] [address] [address] Lavern Fam MA from Last 3 Months Immunizations Immunization Administration Dates Next Due Fluzone 6 Months+ Quad (0.5 mL Prefilled Syringe) 08/22/2019 Fluzone High Dose - >Age 65 (Prefilled Syringe) 07/24/2023,08/06/2022,08/14/2021,2019 Influenza Adult (Generic) 08/22/2019 PFIZER COVID-19 (JACKSON CAP), MRNA, LNP-S, PF, 30 MCG/0.3 ML ORLY-SUCROSE, IM 04/30/2022 PFIZER COVID-19 (ORIGINAL FORMULATION, PURPLE CAP) mRNA, LNP-S, PF, 30 MCG/0.3 ML DOSE 09/09/2021,02/09/2021,01/19/2021 Pneumococcal (Pneumovax 23) 10/10/2019 Pneumococcal (Prevnar 13) 08/21/2016 Tdap (Historical Only-select from magnify glass) 10/10/2019 Family History Medical History Relation Comments Stroke Maternal Grandmother Breast Cancer Mother Cancer Mother breast Stroke Mother Heart Attack Paternal Grandfather Relation Status Comments Father Maternal Grandmother Alive Mother Paternal Grandfather Alive Social History Tobacco Use Types Packs/Day Years Used Date Smoking Tobacco: Never Smokeless Tobacco: Never Tobacco Cessation:Counseling Given: No Comments:non smoker Alcohol Use Standard Drinks/Week Comments [...] file Not on file Not on file Last Filed Vital Signs Vital Sign Reading Time Taken Comments Blood Pressure 156/88 08/06/2025 2:13 PM CDT Pulse 72 08/06/2025 2:13 PM CDT Temperature 36.8 C (98.2 F) 03/27/2024 1:26 PM CDT Respiratory Rate 16 03/27/2024 1:26 PM CDT Oxygen Saturation 98% 08/06/2025 2:13 PM CDT Inhaled Oxygen Concentration - - Weight 87.5 kg (193 lb) 08/06/2025 2:13 PM CDT Height 162.6 cm (5' 4) 08/06/2025 2:13 PM CDT Body Mass Index 33.13 08/06/2025 2:13 PM CDT Plan of Treatment Upcoming Encounters Date Type Department Care Team (Late st Contact Info) Description 08/12/2026 10:30 AM CDT Office Visit [facility] [address] [place] [phone] Rj Castanon MD [facility]. [address] [address] Health Maintenance Due Date Last Done Comments Zoster Vaccines (1 of 2) 1998 RSV Immunization or 60+ Years (1 - 1-dose 75+ series) 2023 PHQ-2 (Physician [place]) 11/08/2024 12/07/2023 Annual Medicare Wellness Visit 12/08/2024 12/07/2023 COVID-19 Vaccine ( - season) 2025 08/02/2023, 04/30/2022, 09/09/2021, Additional history exists Influenza Adult (#1) 2025 07/24/2023, 08/06/2022, 08/14/2021, Additional history exists DTaP, Tdap and Td Vaccines (2 - Td or Tdap) 10/10/2029 10/10/2019 Colorectal Cancer Screening Colonoscopy (10 Years) Discontinued 11/18/2017 Hepatitis C Completed 10/09/2019 Pneumococcal Vaccine: 50+ Years Completed 10/10/2019, 08/21/2016 Dexa Scan (General) Completed 11/15/2020 Hepatitis A Vaccines Aged Out No long er eligible based on patient's age to complete this topic Meningococcal B Vaccine Aged Out No l onger eligible based on patient's age to complete this topic Meningococcal Vaccine Aged Out No carolee jurgen eligible based on patient's age to complete this topic RSV Immunizations Under 20 Months Aged Out No longer eligible based on patient's age to complete this topic Procedures Procedure Name Priority Date/Time Associated Diagnosis Comments BONE DENSITY/DEXA Routine 11/15/2020 1:1 1 PM RECREATION SUPERVISOR Osteopenia, unspecified location HEPATITIS C ANTIBODY Routine 10/09/2019 2:22 PM RECREATION SUPERVISOR Need for hepatitis C screening test COLONOSCOPY/EGD GENERIC (SCAN ORDER) Routine 11/18/2017 10:09 AM RECREATION SUPERVISOR from Last 3 Months or Most Recently Relevant to Health Maintenance Results * BONE DENSITY/DEXA (11/15/2020 1:11 PM RECREATION SUPERVISOR) Anatomical Region Laterality Modality Bone Bone Density 11/15/2020 3:28 PM RECREATION SUPERVISOR Impressions 11/15/2020 3:29 PM RECREATION SUPERVISOR FINDINGS AND IMPRESSION: Examination performed on a [employer] SL .: LUMBAR SPINE L2-L4: 1. BMD: 0.935 g/cm2. 2. T score: -1.3. Previous T score: No previous available. 3. WHO classification: Mild osteopenia. 4. Fracture risk: Low. LEFT FEMORAL NECK: 1. BMD: 0.667 g/cm2. 2. T score: -1.6. Previous T score: No previous available. 3. WHO classification: Moderate osteopenia. 4. Fracture risk: Very low. Recommendations: Recommend therapy and follow up to assess response. Voice recognition software utilized. Interpreted By: Dariel Meyer, 11/15/2020 3:28 PM Narrative 11/15/2020 3:29 PM RECREATION SUPERVISOR Examination: BONE DENSITY/DEXA Exam date/time: 11/15/2020 1:00 PM Comparison studies:No previous available. Clinical history: . Postmenopausal status, screening Procedure Note Dariel Meyer MD - 11/15/2020 Examination: BONE DENSITY/DEXA Exam date/time: 11/15/2020 1:00 PM Comparison studies:No previous available. Clinical history: . Postmenopausal status, screening FINDINGS AND IMPRESSION: Examination performed on a [employer] SL .: LUMBAR SPINE L2-L4: 1. BMD: 0.935 g/cm2. 2. T score: -1.3. Previous T score: No previous available. 3. WHO classification: Mild osteopenia. 4. Fracture risk: Low. LEFT FEMORAL NECK: 1. BMD: 0.667 g/cm2. 2. T score: -1.6. Previous T score: No previous available. 3. WHO classification: Moderate osteopenia. 4. Fracture risk: Very low. Recommendations: Recommend therapy and follow up to assess response. Voice recognition software utilized. Interpreted By: Dariel Meyer, 11/15/2020 3:28 PM Lizy ELIZALDE DEXA Final Result * HEPATITIS C ANTIBODY (10/09/2019 2:22 PM RECREATION SUPERVISOR) HEPATITIS C AB NON-REACT NINA NON-REACT NINA [facility] ORD[facility] SIGNAL TO CUTOFF 0.01 <1.00 [facility] Comment: HCV antibody was non-reactive. There is no laboratory evidence of HCV infection. In most cases, no further action is required. However, if recent HCV exposure is suspected, a test for HCV RNA (test code 33829) is suggested. For additional information please refer to http://education.[employer]/faq/JKZ98w2 (This link is being provided for informational/ educational purposes only.) 10/09/2019 2:22 PM RECREATION SUPERVISOR 10/10/2019 4:51 AM RECREATION SUPERVISOR Narrative Resulting Agency Comment Performing Organization Information: Site ID: [place] Name: [facility] Address: [address] [address] Director: Jarred Dee D.O., MPH Sandra Hanson [facility] Final Re sult [employer] ORDERS * COLONOSCOPY/EGD (11/18/2017 10:09 AM RECREATION SUPERVISOR) 11/18/2017 10:0 9 AM RECREATION SUPERVISOR us Documents Scanned SCANNING Edited Result - Final [facility] from Last 3 Months or Most Recently Relevant to Health Maintenance Insurance [facility] MEDICARE Advance Directives Documents on File Type Date Recorded Patient Edi Analyst Expl anation Advance Directives and Livin g Will 06/16/2023 10:42 AM Living Will Advance Directives and Livin g Will 06/17/2023 6:13 AM LIVING WILL Care Teams Configuration Management Specialist Relationship Specialty Start Date End Date Jane Motley FNP [facility] [place] [address] PCP - General Nurse Practitioner Family 10/04/24 Blaise Kwon MD [address] [place] [address] Referring Physician OPHTHALMOLOGY 10/04/24
[2025-10-15 09:27] VITALS: BP 155/72; PULSE 66; RESP 18; TEMP 36.2; O2SAT 98; BMI 32.5
[2025-10-15] MEDS: LACTATED RINGERS 1,000 ML 150 ML IV CONT (09:33)
--- NOTE | 2025-10-15 10:16 | WPDANESEPPF ---
Anes - Initial Pre Proc Eval Procedure: Operation Date: 10/15/25 11:00 Proposed Procedures p Colonoscopy - Kenyon Encinas MD Date/Time: 10/15/25 10:16 Surgeon: Kenyon Encinas MD Pre Op Diagnosis: Personal history of colon polyps, unspecified Patient Data Age: 75 Gender: F Height: 1.63 m Weight: 86.2 kg Last Vital Signs Temp 36.2 C L 10/15/25 09:27 Pulse 66 10/15/25 09:27 Resp 18 10/15/25 09:27 BP 155/72 H 10/15/25 09:27 Pulse Ox 98 10/15/25 09:27 O2 Del Method Room Air 10/15/25 09:27 Allergies Allergy/AdvReac Type Severity Reaction Status Date / Time lactose Allergy Unknown BLOATING,ABD Verified 09/26/25 13:02 CRAMPING nitrofurantoin (From Allergy Nausea Verified 09/26/25 13:02 Macrobid) RED WINE Allergy Unknown CHEST PAIN Uncoded 09/26/25 13:02 Home Medications ?Medication ?Instructions ?Recorded ?Confirmed ?Type calcium carbonate (Calcium 600) 600 mg PO DAILY 12/15/19 10/15/25 History albuterol sulfate 90 mcg/actuation 1 puff inhalation Q4H PRN 04/07/24 09/26/25 History aerosol inhaler shortness of breath or wheezing hydrochlorothiazide 25 mg tablet 25 mg PO DAILY #90 tabs 03/21/25 10/15/25 Rx amlodipine 5 mg tablet 5 mg PO DAILY 04/04/25 10/15/25 History nebivolol 20 mg tablet 20 mg PO DAILY 04/04/25 10/15/25 History rosuvastatin 5 mg tablet 5 mg PO .HS #90 tabs 06/11/25 10/15/25 Rx furosemide 20 mg tablet 20 mg PO QMWF #40 tabs 07/10/25 10/15/25 Rx pantoprazole 40 mg tablet,delayed 40 mg PO BID #180 tabs 08/29/25 10/15/25 Rx release aspirin 81 mg tablet 81 mg PO DAILY 09/26/25 10/15/25 History cetirizine 10 mg capsule (Zyrtec) 10 mg PO DAILY PRN allergy symptoms 09/26/25 10/15/25 History losartan 25 mg tablet 25 mg PO DAILY #90 tabs 09/26/25 10/15/25 Rx Patient hx anesthesia problems: none Family hx anesthesia problems: none Results Review: All pre-operative results and documents have been reviewed as part of the pre-operative evaluation. [facility] Past Medical History Medical History Arthritis Emphysema lung Her patient. Related to 2nd hand smoke. History of depression Endometriosis Osteoarthritis, knee Glaucoma Obesity Hyperlipidemia HTN (hypertension) Surgical History Surgical History History of hysterectomy with oophorectomy History of medial meniscus repair of left knee History of tonsillectomy Age 13 History of cataract surgery Family History Family History Father Lung cancer Heart disease Mother Breast cancer Lung cancer Alcoholism Depression Cerebrovascular accident Son Hypertension Grandparent Alcoholism Cerebrovascular accident Grandparent Heart disease Social History Social History Social History: Lives home with her . They have 2 cats. No alcohol use. Lifelong nonsmoker but has been exposed to secondhand smoke. Full code. No drug use. 03/28/25 Very confident with medical forms Smoking status: Never smoker Alcohol intake: never Substance use: never Substance use type: does not use Lack of Transportation: No Lack of Food: Never True Current Housing: I Have Housing Concerned About Future Housing: No Difficulty Paying Gas/Electric Bills: No Difficulty Paying for Meds: No Currently Unemployed: No Education: High School Diploma/GED Difficulty w/ Childcare or Family Care: No Living arrangements: alone Anes - Eval Final PreProcedure Day of Procedure 10/15/25 10:16 Patient weight: obese Heart: regular rate and rhythm Lungs: clear to auscultation Airway: Mallampati scale class II Neurological: alert and oriented Last oral intake: >/= 8 hours ASA classification: III Emergent: no Anesthetic plan: proceed Anesthesia type and monitoring: general GIVS and standard monitoring Results Review: All pre-operative results and documents have been reviewed as part of the pre-operative evaluation. Informed Consent: The patient's anesthetic plan and its attendant risks and benefits were discussed with the patient/family/POA. Questions were solicited and answers provided to the satisfaction of the patient/family/POA.
--- NOTE | 2025-10-15 10:34 | PM.IMHP2 ---
H&P: HPI History of Present Illness Date/Time: 10/15/25 10:34 Chief Complaint: Screening colonoscopy Narrative: This is the patient's 3rd screening colonoscopy. There are no GI symptoms and there is no family history of colorectal cancer. Review of Systems Review of Systems: All systems reviewed & are unremarkable except as noted in HPI and below PMFSH Past Medical History Medical History Arthritis Emphysema lung Her patient. Related to 2nd hand smoke. History of depression Endometriosis Osteoarthritis, knee Glaucoma Obesity Hyperlipidemia HTN (hypertension) Surgical History Surgical History History of hysterectomy with oophorectomy History of medial meniscus repair of left knee History of tonsillectomy Age 13 History of cataract surgery Family History Family History Father Lung cancer Heart disease Mother Breast cancer Lung cancer Alcoholism Depression Cerebrovascular accident Son Hypertension Grandparent Alcoholism Cerebrovascular accident Grandparent Heart disease Social History Social History Social History: Lives home with her . They have 2 cats. No alcohol use. Lifelong nonsmoker but has been exposed to secondhand smoke. Full code. No drug use. 03/28/25 Very confident with medical forms Smoking status: Never smoker Alcohol intake: never Substance use: never Substance use type: does not use Lack of Transportation: No Lack of Food: Never True Current Housing: I Have Housing Concerned About Future Housing: No Difficulty Paying Gas/Electric Bills: No Difficulty Paying for Meds: No Currently Unemployed: No Education: High School Diploma/GED Difficulty w/ Childcare or Family Care: No Living arrangements: alone Meds Home Medications and Allergies Home Medications ?Medication ?Instructions ?Recorded ?Confirmed ?Type calcium carbonate (Calcium 600) 600 mg PO DAILY 12/15/19 10/15/25 History albuterol sulfate 90 mcg/actuation 1 puff inhalation Q4H PRN 04/07/24 09/26/25 History aerosol inhaler shortness of breath or wheezing hydrochlorothiazide 25 mg tablet 25 mg PO DAILY #90 tabs 03/21/25 10/15/25 Rx amlodipine 5 mg tablet 5 mg PO DAILY 04/04/25 10/15/25 History nebivolol 20 mg tablet 20 mg PO DAILY 04/04/25 10/15/25 History rosuvastatin 5 mg tablet 5 mg PO .HS #90 tabs 06/11/25 10/15/25 Rx furosemide 20 mg tablet 20 mg PO QMWF #40 tabs 07/10/25 10/15/25 Rx pantoprazole 40 mg tablet,delayed 40 mg PO BID #180 tabs 08/29/25 10/15/25 Rx release aspirin 81 mg tablet 81 mg PO DAILY 09/26/25 10/15/25 History cetirizine 10 mg capsule (Zyrtec) 10 mg PO DAILY PRN allergy symptoms 09/26/25 10/15/25 History losartan 25 mg tablet 25 mg PO DAILY #90 tabs 09/26/25 10/15/25 Rx Allergies Allergy/AdvReac Type Severity Reaction Status Date / Time lactose Allergy Unknown BLOATING,ABD Verified 09/26/25 13:02 CRAMPING nitrofurantoin (From Allergy Nausea Verified 09/26/25 13:02 Macrobid) RED WINE Allergy Unknown CHEST PAIN Uncoded 09/26/25 13:02 Vital Signs Vital Signs - 24 hr 10/15/25 09:27 Temperature 97.1 F L Pulse Rate 66 Respiratory Rate 18 Blood Pressure 155/72 H Pulse Oximetry 98 Oxygen Delivery Room Air Exam Const: General: cooperative and healthy appearing Resp: Effort & Inspection: normal respiratory effort and able to speak in complete sentences Auscultation: clear to auscultation bilaterally Cardio: Rate: regular rate Rhythm: regular rhythm GI: Inspection: normal to inspection GI Palp: No No hepatosplenomegaly present Auscultation: normal bowel sounds Rectal Exam: deferred Skin: General skin exam: normal color Psych: Appearance: grossly normal Mental Status: mental status grossly normal Assessment and Plan Assessment and plan (1) Encounter for screening colonoscopy: Code(s): Z12.11 - Encounter for screening for malignant neoplasm of colon Status: Acute Assessment and Plan: The patient is deemed a good candidate for the procedure. Consent signed. Will proceed. Prior Studies I have reviewed the following patient records and this information was taken into consideration when formulating the assessment and plan.: previous labs, previous ER visits, previous hospitalizations and previous clinic visits
[2025-10-15 10:48] VITALS: BP 108/59; PULSE 68; RESP 17; O2SAT 100
[2025-10-15 10:58] VITALS: BP 156/83; PULSE 66; RESP 18; O2SAT 100
[2025-10-15 11:08] VITALS: BP 146/86; PULSE 63; RESP 23; O2SAT 100
== END 2025-10-15 11:20 | disposition home or self-care (01) ==
PROVIDERS: PCP Nurse Practitioner Family; Visit Provider Internal Medicine Gastroenterology
PROC: 0DJD8ZZ Inspection of Lower Intestinal Tract, Via Natural or Artificial Opening Endoscopic (ICD-10-PCS; CPT 45378; principal; 2025-10-15 11:00)
DX: Z12.11 Encounter for screening for malignant neoplasm of colon (principal); E78.5 Hyperlipidemia, unspecified; I10 Essential (primary) hypertension; J43.9 Emphysema, unspecified; F32.A Depression, unspecified; N80.9 Endometriosis, unspecified; M17.10 Unilateral primary osteoarthritis, unspecified knee; E66.9 Obesity, unspecified; Z68.32 Body mass index [BMI] 32.0-32.9, adult; Z79.51 Long term (current) use of inhaled steroids; Z79.82 Long term (current) use of aspirin; Z98.890 Other specified postprocedural states; Z80.1 Family history of malignant neoplasm of trachea, bronchus and lung; Z80.3 Family history of malignant neoplasm of breast; Z82.49 Family history of ischemic heart disease and other diseases of the circulatory system
CPT/HCPCS: G0105; J2003; J2704; J7120